=== PATIENT | female | born 1940 | race Caucasian/White ===

== ENCOUNTER 2024-12-26 21:45 | Emergency (ER) | payer OTHER ==
[~2024-12-26] VITALS: Ht 162.6 cm; Wt 59.0 kg
[2024-12-26 21:52] VITALS: O2SAT 95
[2024-12-26] MEDS: ONDANSETRON HCL 4MG/2ML INJ IV ONE (23:07)
[2024-12-26 23:25] LABS: BASOPHILS % 0.4 % (0.0-2.0); EOSINOPHILS % 0.3 % (0.0-5.0); HEMATOCRIT. 30.5 % (36.0-48.0); HEMOGLOBIN. 10.4 g/dL (12.0-16.0); LYMPHOCYTES % 7.1 % (20.0-50.0); MEAN PLATELET VOLUME 8.1 fl (7.4-10.4); MONOCYTES % 3.1 % (2.0-8.0); NEUTROPHILS % 89.1 % (40.0-76.0); PLATELET 257 x1000/uL (130-400); RED BLOOD CELL COUNT 3.52 mill/uL (4.2-5.4); RED CELL DISTRIBUTION WIDTH 13.8 % (11.6-14.6)
[2024-12-26 23:40] LABS: CREATININE 1.1 mg/dL (0.6-1.0)
[2024-12-26 23:41] LABS: UREA NITROGEN BLOOD 12 mg/dL (9-23)
[2024-12-26 23:42] LABS: ASPARTATE AMINOTRANSFERASE 16 IU/L (<34)
[2024-12-26 23:43] LABS: BILIRUBIN DIRECT 0.3 mg/dL (<=3.0); BILIRUBIN TOTAL 0.9 mg/dL (0.1-1.0); PROTEIN TOTAL 6.2 g/dL (6.0-8.3)
[2024-12-27 01:05] VITALS: BP 107/40; PULSE 60; RESP 20; TEMP 36.8; O2SAT 97
[2024-12-27] MEDS ORDERED: ONDA4TAB50 MT (01:09)
== END 2024-12-27 01:27 | disposition home or self-care (01) ==
LOC: ER 21:45
DX: A05.9 Bacterial foodborne intoxication, unspecified (principal); R11.2 Nausea with vomiting, unspecified; F03.90 Unspecified dementia, unspecified severity, without behavioral disturbance, psychotic disturbance, mood disturbance, and anxiety; Z98.890 Other specified postprocedural states
CPT/HCPCS: 99284; 80076; 80048; 83690; 85025; 36415; 93005; 96372; J2405